=== PATIENT | female | born 1960 | race Caucasian/White ===

== ENCOUNTER 2019-06-20 09:14 | Day surgery (SDC) | payer MEDICARE, MEDICAID ==
[~2019-06-20] VITALS: Ht 172.7 cm; Wt 85.7 kg
[2019-06-20] MEDS ORDERED: normal saline 1000ml 1,000 ML IV PRN (09:40)
[2019-06-20 10:00] VITALS: BP 126/65
[2019-06-20 10:08] LABS: BASOPHILS # (AUTO) 0.1 X10'3 (0-0.2); EOSINOPHILS % (AUTO) 0.1 % (0-6); HEMOGLOBIN 9.3 g/dl (12.0-16.0); LYMPHOCYTES # (AUTO) 1.2 X10'3 (1.1-4.8); MEAN PLATELET VOLUME 8.2 FL (7.4-10.4); NEUTROPHILS # (AUTO) 1.5 X10'3 (1.8-7.7); WHITE BLOOD COUNT 3.1 X10'3 (4.5-11.0)
[2019-06-20 10:10] LABS: HEMATOCRIT 26.5 % (35.0-45.0); LYMPHOCYTES % (AUTO) 39.3 % (21-51); MEAN CORPUSCULAR HEMOGLOBIN 33.1 PG (27.0-31.0); MEAN CORPUSCULAR HGB CONC 35.1 g/dL (33.0-36.5); MEAN CORPUSCULAR VOLUME 94.5 FL (78-98); MONOCYTES # (AUTO) 0.2 X10'3 (0-0.9); MONOCYTES % (AUTO) 7.9 % (2-12); NEUTROPHILS % (AUTO) 50.7 % (42-75); PLATELET COUNT 172 X10'3 (140-440); RED CELL DISTRIBUTION WIDTH 17.1 % (11.5-14.5)
[2019-06-20] MEDS ORDERED: ABEM150T PO (10:20)
[2019-06-20] MEDS ORDERED: HYDR2TAB28 PO (10:20)
[2019-06-20] MEDS ORDERED: LEVE500T PO (10:20)
[2019-06-20] MEDS ORDERED: CHOL10002 PO (10:20)
[2019-06-20] MEDS ORDERED: ONDA8TAB12 PO (10:20)
[2019-06-20] MEDS ORDERED: PROC-8 PO (10:20)
[2019-06-20] MEDS ORDERED: GABA-532 PO (10:20)
[2019-06-20] MEDS ORDERED: LEVO100T PO (10:20)
[2019-06-20] MEDS ORDERED: NAPR-56 PO (10:20)
[2019-06-20] MEDS ORDERED: ACET-812 PO (10:20)
[2019-06-20] MEDS ORDERED: SIMV-42 PO (10:20)
[2019-06-20] MEDS ORDERED: HYDR-4383 PO (10:20)
[2019-06-20] MEDS ORDERED: MORP15TA PO (10:20)
[2019-06-20] MEDS ORDERED: CHOL100046 PO (10:24)
[2019-06-20] MEDS ORDERED: FULV250D2 IM (10:24)
[2019-06-20] MEDS ORDERED: LIDOcaine 1%/PF 5ML 10 MG/ML VIAL ONE (10:57)
[2019-06-20] MEDS ORDERED: heparin sodium, porcine/PF 100unit/ml 5ML syringe ICATH ONE (11:05)
[2019-06-20] MEDS ORDERED: fentaNYL/PF 50MCG/1 ML 2ML syringe IV PRN (11:05)
[2019-06-20] MEDS ORDERED: LIDOcaine 1%/PF 5ML 10 MG/ML VIAL SQ ONE (11:05)
[2019-06-20] MEDS ORDERED: midazolam 2 mg/2 ml injection IV PRN (11:05)
[2019-06-20] MEDS ORDERED: heparin sodium, porcine/PF 100unit/ml 5ML syringe ONE (11:18)
[2019-06-20] MEDS ORDERED: fentaNYL/PF 50MCG/1 ML 2ML syringe ONE (11:18)
[2019-06-20] MEDS ORDERED: midazolam 2 mg/2 ml injection ONE (11:18)
[2019-06-20 13:00] VITALS: BP 126/65
[2019-06-20 13:15] VITALS: BP 126/59
[2019-06-20 13:30] VITALS: BP 127/67
[2019-06-20 13:45] VITALS: BP 121/85
== END 2019-06-20 14:10 | disposition home or self-care (01) ==
LOC: SSTAY O 09:14
PROVIDERS: ATTEND Radiology Diagnostic Radiology
DX: C50.912 Malignant neoplasm of unspecified site of left female breast (principal); C79.89 Secondary malignant neoplasm of other specified sites; Z85.850 Personal history of malignant neoplasm of thyroid
CPT/HCPCS: 36415; 36561; 76937; 77001; 85025; 99152; 99153; C1788; C1894; J1642; J2250; J3010; J7030; A6213